=== PATIENT | male | born 1940 | race African-American/Black ===

== ENCOUNTER 2017-06-12 22:11 | Emergency (ER) | payer OTHER ==
[~2017-06-12] VITALS: Ht 185.4 cm; Wt 113.0 kg
[2017-06-13 03:20] LABS: BASOPHILS % 1.1 % (0.0-2.0); EOSINOPHILS % 1.2 % (0.0-5.0); HEMATOCRIT. 27.4 % (42.0-52.0); HEMOGLOBIN. 8.8 g/dL (14.0-18.0); LYMPHOCYTES % 21.8 % (20.0-50.0); MEAN CORPUSCULAR HEMOGLOBIN 23.2 pg (28.0-32.0); MEAN CORPUSCULAR VOLUME 72.3 fL (80.0-94.0); MEAN PLATELET VOLUME 8.2 fl (7.4-10.4); MONOCYTES % 5.6 % (2.0-8.0); NEUTROPHILS % 70.3 % (40.0-76.0); PLATELET 419 x1000/uL (130-400); RED BLOOD CELL COUNT 3.78 mill/uL (4.7-6.1); RED CELL DISTRIBUTION WIDTH 18.7 % (11.6-14.6)
[2017-06-13 03:25] LABS: PROTHROMBIN TIME 10.9 sec
[2017-06-13 03:34] LABS: CARBON DIOXIDE 29 mEq/L (21-32); CHLORIDE 103 mEq/L (98-107)
[2017-06-13] MEDS ORDERED: ENOXAPARIN 100MG/ML SYR SUBCUT ONE (04:00)
[2017-06-13] MEDS ORDERED: WARFARIN SODIUM 5MG TABLET PO ONE (04:00)
[2017-06-13] MEDS ORDERED: SODIUM CHLORIDE 0.9% 1,000 ML IV ONE (04:09)
[2017-06-13] MEDS ORDERED: VANCOMYCIN 1 G PREMIX 200 ML IV ONE (04:45)
[2017-06-13 04:56] LABS: TROPONIN I < 0.02 ng/mL (0.00-0.04)
[2017-06-13 05:00] VITALS: BP 145/79
[2017-06-13] MEDS ORDERED: CLINDAMYCIN 600 MG in DEXTROSE 5% WATER 50 ML IV ONE (05:45)
== END 2017-06-13 07:15 | disposition short-term general hospital (02) ==
LOC: ER 22:47
DX: M86.172 Other acute osteomyelitis, left ankle and foot (principal); E11.40 Type 2 diabetes mellitus with diabetic neuropathy, unspecified; L97.922 Non-pressure chronic ulcer of unspecified part of left lower leg with fat layer exposed; R79.89 Other specified abnormal findings of blood chemistry; I10 Essential (primary) hypertension; E13.622 Other specified diabetes mellitus with other skin ulcer; Z85.46 Personal history of malignant neoplasm of prostate; Z98.890 Other specified postprocedural states; Z89.429 Acquired absence of other toe(s), unspecified side
CPT/HCPCS: 36415; 71010; 73630; 80053; 83605; 83880; 84484; 85025; 85610; 85730; 87040; 93005; 93970; 96361; 96365; 99285; J1650; J3370; J3490; J7030; J7060